=== PATIENT | female | born 1970 | race African-American/Black ===

== ENCOUNTER 2022-05-21 15:25 | Inpatient (IN) ==
[2022-05-21 16:38] LABS: Urine Appearance Cloudy; Urine Bilirubin Negative (Negative); Urine Blood Negative (Negative); Urine Color Yellow; Urine Glucose Negative (Negative); Urine Ketones Negative (Negative); Urine Nitrite Negative (Negative); Urine Protein Negative (Negative); Urine Specific Gravity 1.017 (1.002-1.030); Urine Urobilinogen Negative (Negative)
[2022-05-21 16:43] LABS: ABS Basophils 0.1 10^3/ul (0-0.2); ABS Eosinophils 0.1 10^3/ul (0-0.6); ABS Lymphocytes 1.7 10^3/ul (1.0-4.8); ABS Monocytes 0.8 10^3/ul (0-0.8); ABS Neutrophils 6.9 10^3/ul (1.5-7.7); Eosinophil % 0.7 %; Hematocrit 45 % (35-47); Hemoglobin 14.8 g/dL (12.0-16.0); Lymphocyte % 17.9 %; Mean Corpuscular HGB Conc 33 g/dL (31-36); Mean Corpuscular Hemoglobin 31 pg (27-31); Mean Corpuscular Volume 93 fL (80-97); Mean Platelet Volume 10.5 fL (7.4-10.4); Red Blood Count 4.78 10^6 /uL (3.70-4.87); Red Cell Distribution Width 14 % (10-15); White Blood Count 9.6 10^3/uL (3.5-10.8)
[2022-05-21 17:01] LABS: Urine Benzodiazepine Screen None Detected (None Detect); Urine Cannabinoids Screen None Detected (None Detect); Urine Opiates Screen None Detected (None Detect)
[2022-05-21 17:29] LABS: Albumin 4.1 g/dL (3.2-5.2); Anion Gap 10 mmol/L (2-11); CO2 Carbon Dioxide 24 mmol/L (22-32); Calcium 9.2 mg/dL (8.6-10.3); Chloride 104 mmol/L (101-111); Potassium 4.3 mmol/L (3.5-5.0); Sodium 138 mmol/L (135-145)
[2022-05-21] MEDS ORDERED: Nicotine PATCH 14 MG/24 HR PATCH TRANSDERM ONE (17:29)
[2022-05-21 17:36] LABS: ALT 15 U/L (7-52); AST 21 U/L (13-39); Acetaminophen < 15 mcg/mL; Albumin/Globulin Ratio 1.5 (1-3); Alcohol, S < 13 mg/dL (<13); Alkaline Phosphatase 109 U/L (35-149); Blood Urea Nitrogen 13 mg/dL (6-24); Globulin 2.7 g/dL (2-4); Glucose 103 mg/dL (70-100); Salicylate < 2.50 mg/dL (<30); Total Protein 6.8 g/dL (6.4-8.9); eGFR CKD-EPI 88.6 (>60)
[2022-05-21 18:06] LABS: TSH Ultra Thyroid Stim Horm 0.99 mcIU/mL (0.34-5.60)
[2022-05-21 18:40] LABS: Platelet Count 133 10^3/uL (150-450)
[2022-05-21] MEDS ORDERED: Al Hydrox/Mg Hydrox/Simet LIQ 30 ML UDC PO PRN (19:59)
[2022-05-21] MEDS ORDERED: Nicotine GUM 2MG FRUIT FLAVOR PO PRN (20:00)
[2022-05-22] MEDS: Vitamin THERAPEUTIC TAB PO SCH (08:48)
[2022-05-22] MEDS: Nicotine PATCH 14 MG/24 HR PATCH TRANSDERM SCH (08:49)
[2022-05-23 08:19] LABS: HDL Cholesterol 44.8 mg/dL
[2022-05-23] MEDS: Nicotine PATCH 14 MG/24 HR PATCH TRANSDERM SCH (08:57)
[2022-05-23] MEDS: Vitamin THERAPEUTIC TAB PO SCH (08:58)
[2022-05-24] MEDS: Nicotine PATCH 14 MG/24 HR PATCH TRANSDERM SCH (10:06)
[2022-05-24] MEDS: Vitamin THERAPEUTIC TAB PO SCH (10:06)
[2022-05-25] MEDS: Nicotine PATCH 14 MG/24 HR PATCH TRANSDERM SCH (08:29)
[2022-05-25] MEDS: Vitamin THERAPEUTIC TAB PO SCH (08:30)
[2022-05-26] MEDS: Nicotine PATCH 14 MG/24 HR PATCH TRANSDERM SCH (09:50)
[2022-05-26] MEDS: Vitamin THERAPEUTIC TAB PO SCH (09:52)
[2022-05-27] MEDS: Vitamin THERAPEUTIC TAB PO SCH (09:27)
[2022-05-27] MEDS: Nicotine PATCH 14 MG/24 HR PATCH TRANSDERM SCH (09:27)
[2022-05-28] MEDS: Vitamin THERAPEUTIC TAB PO SCH (08:33)
[2022-05-28] MEDS: Nicotine PATCH 14 MG/24 HR PATCH TRANSDERM SCH (08:34)
[2022-05-29] MEDS: Vitamin THERAPEUTIC TAB PO SCH (09:58)
[2022-05-29] MEDS: Nicotine PATCH 14 MG/24 HR PATCH TRANSDERM SCH (09:59)
[2022-05-30] MEDS: Vitamin THERAPEUTIC TAB PO SCH (07:39)
[2022-05-30] MEDS: Nicotine PATCH 14 MG/24 HR PATCH TRANSDERM SCH (07:40)
[2022-05-30 08:17] VITALS: BP 104/77
== END 2022-05-30 16:30 | disposition home or self-care (01) | DRG 753 ==
LOC: ED 15:25 → BSU 21:01
PROVIDERS: ADMIT Psychiatry & Neurology Psychiatry; ATTEND Psychiatry & Neurology Psychiatry